=== PATIENT | female | born 1955 | race Caucasian/White ===

== ENCOUNTER → 2016-10-26 | Outpatient (CLI) | payer MEDICARE ==
--- NOTE | ~2016-10-26 | US6 ---
[facility] A Service of [facility] RADIOLOGY TEXT RESULTS PATIENT: BENNETT PERSON LOCATION: [facility] : 51 UNIT #: [id number] AGE: [address]: Tania Blackwell MD SEX: F ORDER DR: [id number] [id number] [facility]. [place], [place] [address] [id number] O MR#: [id number] Acc #: [id number] NAME: BENNETT PERSON : 1955 SEX: F STUDY DATE/TIME: 10/26/2016 10:59 UNIT: [facility] ROOM: STUDY DESCRIPTION: US Abdominal Limited Attending Physician: Tania Blackwell M.D. Referring Physician: Tania Blackwell M.D. Ordering Physician: Tania Blackwell M.D. Primary Care Physician: Tania Blackwell M.D. MEDICAL IMAGING REPORT This report is preliminary unless electronic signature is present EXAM Right upper quadrant abdominal ultrasound INDICATION Generalized abdominal pain for the past year. PROCEDURE Parr-scale and Doppler imaging right upper quadrant of the abdomen COMPARISON None. FINDINGS The liver measures 19.7 cm and has increased echotexture. The second submitted to the liver measures up to 20.7 cm. No liver mass seen on submitted images. Right kidney measures 10.1 cm and is normal. Ring-down artifact seen from the gallbladder wall suggesting cholesterolosis. No well-formed gallstones. Common duct measures up to 9 mm. IMPRESSION 1. Common duct measures up to 9 mm. No evidence for cholelithiasis. 2. Gallbladder wall cholesterolosis. 3. Hepatomegaly with steatosis. Dictated by... Henry Gentile M.D. THIS IS AN ELECTRONICALLY VERIFIED REPORT Henry Gentile M.D. at 10/27/2016 7:35 AM LAKISHAD/hanny [facility] A Service of [facility] RADIOLOGY TEXT RESULTS PATIENT: BENNETT PERSON LOCATION: [facility] ACC #: [id number] : 51 UNIT #: [id number] AGE: [address]: Tania Blackwell MD SEX: F ORDER DR: TD: 10/26/2016 22:38 JOB #: [id number] MEDICAL IMAGING REPORT Page 1 of 1 COPY
== END | disposition home or self-care (01) ==
LOC: CGUS 10:30
DX: R94.5 Abnormal results of liver function studies (principal); K76.0 Fatty (change of) liver, not elsewhere classified; K82.4 Cholesterolosis of gallbladder; R16.0 Hepatomegaly, not elsewhere classified
CPT/HCPCS: 76705

== ENCOUNTER → 2017-01-10 | Outpatient (CLI) | payer MEDICARE ==
--- NOTE | ~2017-01-10 | MY29 ---
[facility] A Service of [facility] RADIOLOGY TEXT RESULTS PATIENT: BENNETT PERSON [facility] 53 UNIT #: [id number] AGE: [address]: Tania Blackwell MD SEX: F ORDER DR: [id number] [facility] [address] [place], [place] [address] [id number] O MR#: [id number] Acc #: [id number] NAME: BENNETT PERSON : 1955 SEX: F STUDY DATE/TIME: 01/10/2017 14:01 [facility] ROOM: STUDY DESCRIPTION: DUSTIN SCREENING W/ CAD BILAT Attending Physician: Tania Blackwell M.D. Referring Physician: Tania Blackwell M.D. Ordering Physician: Tania Blackwell M.D. Primary Care Physician: Tania Blackwell M.D. MEDICAL IMAGING REPORT This report is preliminary unless electronic signature is present REVISED REPORT SEE ADDENDUM EXAM Bilateral digital screening mammogram with CAD DATE: 01/10/2017 HISTORY No personal or family history of breast cancer or current complains. COMPARISON None. Patient's previous screening mammogram performed approximately 17 years ago at the [facility] is not available for comparison at the time of this dictation. FINDINGS CC and MLO views were obtained of each breast utilizing digital technique and reviewed with an FDA-approved CAD device. Breast parenchyma is predominant fatty replaced. In the upper outer left breast posterior third an 8 mm circumscribed nodule is seen. In the upper outer right breast posterior third, a 4 mm circumscribed nodule is seen. Benign-appearing calcifications are present bilaterally. No cluster of microcalcification. No architectural distortion. IMPRESSION BIRADS 0. Outside imaging studies required. There are single circumscribed nodules in the upper outer quadrants of each breast. These may represent benign intramammary lymph nodes. Correlation with patient's previous mammogram performed at [facility] will be recommended if available. An addendum will be placed upon this report at [facility] A Service [facility] RADIOLOGY TEXT RESULTS PATIENT: BENNETT PERSON [facility] 53 UNIT #: [id number] AGE: [address]: Tania Blackwell MD SEX: F ORDER DR: the time of comparison. If comparison study cannot be obtained (has been destroyed or cannot be found) then targeted bilateral diagnostic breast ultrasound would be recommended. Patients over the age of 40 are entered into a reminder system with target due date for the next mammogram. A result letter will also be sent to the patient. BIRADS: 0 Incomplete; need additional imaging evaluation and/or prior mammograms for comparison. Dictated by... Anabela Thompson M.D. THIS IS AN ELECTRONICALLY VERIFIED REPORT Anabela Thompson M.D. at 01/11/2017 8:31 AM RENO/hanny TD: 01/11/2017 02:34 JOB #: [id number] ADDENDUM The questioned single circumscribed nodular densities in the upper outer quadrant of each breast are stable findings compared to outside screening mammograms performed at [facility] dated 02/18/2015 and 10/27/2010, in keeping with the appearance of benign intramammary lymph nodes. There are no new findings to suggest malignancy. IMPRESSION BIRADS 2. Benign findings. Routine bilateral screening mammogram recommended in one year. Patients over the age of 40 are entered into a reminder system with target due date for the next mammogram. A result letter will also be sent to the patient. BIRADS: 2 Benign finding. Dictated by... Anabela Thompson M.D. THIS IS AN ELECTRONICALLY VERIFIED REPORT [facility] A Service [facility] RADIOLOGY TEXT RESULTS PATIENT: BENNETT PERSON [facility] 51 UNIT #: [id number] AGE: [address]: Tania Blackwell MD SEX: F ORDER DR: Anabela Thompson M.D. at 01/13/2017 7:33 AM RENO/adriana TD: 01/11/2017 16:05 JOB #: [id number] MEDICAL IMAGING REPORT Page 1 of 1 COPY
== END | disposition home or self-care (01) ==
LOC: CWCC 12:45
DX: Z12.31 Encounter for screening mammogram for malignant neoplasm of breast (principal); N63 Unspecified lump in breast
CPT/HCPCS: 36415; 74177; 80053; 82150; 83690; 85027; G0202; Q9967